=== PATIENT | female | born 1955 | race Caucasian/White ===

== ENCOUNTER 2018-07-27 05:34 | Day surgery (SDC) | payer BC ==
[~2018-07-27] VITALS: Ht 160 cm; Wt 80.7 kg
[2018-07-27] MEDS ORDERED: BUPIVACAINE HCL 0.5% (5MG/ML) 50ML ONE (09:07)
[2018-07-27] MEDS ORDERED: SKIN ADHESIVE 0.7 GM EA TOP ONE (09:07)
[2018-07-27] MEDS ORDERED: LEVO75TA7 PO (10:07)
[2018-07-27] MEDS ORDERED: AMLO2.5T45 PO (10:07)
[2018-07-27] MEDS ORDERED: OLME1TAB40 PO (10:07)
[2018-07-27] MEDS ORDERED: NEOSTIGMINE METHYLSULFATE 1MG/ML 10 ML VIAL ONE (12:57)
[2018-07-27] MEDS ORDERED: GLYCOPYRROLATE 0.2 MG/ML 2ML VIAL ONE (12:57)
[2018-07-27] MEDS ORDERED: PROPOFOL 200MG/20ML VIAL IV ONE ×2 (12:57→14:25)
[2018-07-27] MEDS ORDERED: ROCURONIUM BROMIDE 10MG/ML VIAL 5ML IV ONE (12:57)
[2018-07-27] MEDS ORDERED: CEFAZOLIN SODIUM 1000MG/VIAL ONE ×2 (12:57→13:02)
[2018-07-27] MEDS ORDERED: MIDAZOLAM HCL 2 MG/2 ML VIAL ONE (12:57)
[2018-07-27] MEDS ORDERED: FENTANYL CITRATE/PF 50MCG/ML 2ML VIAL ONE ×2 (12:57→13:29)
[2018-07-27] MEDS ORDERED: SODIUM CHLORIDE 0.9% 10ML VIAL ONE (12:58)
[2018-07-27] MEDS ORDERED: ONDANSETRON HCL 4MG/2ML INJ ONE (12:58)
[2018-07-27] MEDS ORDERED: PHENYLEPHRINE HCL 10 MG/ML 1ML (IV VIAL) IV ONE (12:58)
[2018-07-27] MEDS ORDERED: LIDOCAINE HCL/PF 1% 10 MG/ML 5ML VIAL ONE (12:58)
[2018-07-27] MEDS ORDERED: EPHEDRINE SULFATE 50MG/ML VIAL ONE (12:58)
[2018-07-27] MEDS ORDERED: SUCCINYLCHOLINE CHLORIDE 200MG/10ML IV ONE (12:58)
[2018-07-27] MEDS ORDERED: ALBUTEROL 90MCG/PUFF 17GM INHALER INH ONE (13:48)
[2018-07-27] MEDS ORDERED: RACEPINEPHRINE 2.25% 0.5ML NEB VIAL HHN NR (14:00)
[2018-07-27] MEDS ORDERED: DEXAMETHASONE 4MG/ML 1ML VIAL ONE ×2 (14:01→14:02)
[2018-07-27] MEDS ORDERED: DIPHENHYDRAMINE 50MG/ML VIAL ONE (14:03)
[2018-07-27] MEDS ORDERED: HYDROMORPHONE HCL/PF 2MG/ML CPJ IV PRN (14:30)
[2018-07-27] MEDS ORDERED: MEPERIDINE HCL/PF 25MG/ML CPJ IV PRN (14:30)
[2018-07-27] MEDS ORDERED: MORPHINE SULFATE 4 MG/ML CPJ (NOT FOR IM USE) IV PRN (14:30)
[2018-07-27] MEDS ORDERED: ONDANSETRON HCL 4MG/2ML INJ IV PRN (14:30)
[2018-07-27] MEDS ORDERED: SODIUM CHLORIDE 0.9% 1,000 ML IV ONE (16:16)
== END 2018-07-27 16:30 | disposition home or self-care (01) ==
LOC: OR 05:34
PROVIDERS: ATTEND Surgery
DX: L72.0 Epidermal cyst (principal); D36.7 Benign neoplasm of other specified sites; I10 Essential (primary) hypertension; E03.9 Hypothyroidism, unspecified; R22.9 Localized swelling, mass and lump, unspecified
CPT/HCPCS: 11444; 71045; 88305; G0168; J0330; J0690; J1100; J1200; J2250; J2370; J2405; J2704; J2710; J3010; J3490